=== PATIENT | male | born 1975 | race Caucasian/White ===

== ENCOUNTER 2022-04-07 09:14 | Emergency (ER) | payer SELFPAY ==
[~2022-04-07] VITALS: Ht 167.6 cm; Wt 74.8 kg
[2022-04-07] MEDS ORDERED: HYDROCODONE/APAP 5-325MG TABLET ONE (09:57)
[2022-04-07] MEDS ORDERED: TDAP DIPH,PERTUSS,TET VAC/PF 0.5 ML DISP.SYRIN IM ONE ×2 (09:57→10:00)
[2022-04-07] MEDS ORDERED: HYDROCODONE/APAP 5-325MG TABLET PO ONE (10:00)
--- NOTE | 2022-04-07 10:03 | NUR ---
PT IS IN ROOM #2B. DR BONILLA EVALUATED THE PT.
[2022-04-07] MEDS ORDERED: NEOMY/BACITRA/POLYMYXIN B OINT UD PACKET TP ONE ×2 (10:15→10:31)
[2022-04-07] MEDS ORDERED: IBUP-1957 PO (10:32)
[2022-04-07] MEDS ORDERED: ACET-73 PO (10:32)
[2022-04-07] MEDS ORDERED: NEOM28.43 TP (10:50)
--- NOTE | 2022-04-07 11:45 | NUR ---
PT WAS D/C'd TO HOME. D/C INSTRUCTIONS GIVEN TO THE PT BY DR BONILLA.
[2022-04-07 11:47] VITALS: BP 139/78
== END 2022-04-07 11:49 | disposition home or self-care (01) ==
LOC: ER 09:14
DX: S70.372A Other superficial bite of left thigh, initial encounter (principal); W54.0XXA Bitten by dog, initial encounter; Y92.89 Other specified places as the place of occurrence of the external cause; Y99.0 Civilian activity done for income or pay
CPT/HCPCS: 90715; A4663